=== PATIENT | female | born 1970 | race Caucasian/White ===

== ENCOUNTER 2016-08-31 17:23 | Emergency (ER) | payer BC ==
[2016-08-31 17:31] VITALS: BP 129/71
[2016-08-31] MEDS ORDERED: Albuterol/Ipratropium NEB.SOL* Albuterol 2.5 MG/Ipratropium 0.5 MG 3 ML INH ONE (17:42)
--- NOTE | 2016-08-31 17:42 | UC ---
Throat Pain/Nasal Gilbert HPI - HPI Summary HPI Summary: complaint of asthma attack hat has been worsening over the last 2 hours nasal congestion, cough sneezing feels like she is wheezing difficult to take a full deep breath denies chest pain, dizziness, nausea ,diaphoreisis has frequent bouts of allergy induced asthma in the past doesn't have an albuterol inhaler at this time taking zyrtec for allergies - History of Current Complaint Chief Complaint: UCRespiratory Stated Complaint: ALLERGY INDUCED ASTHMA,SOB Time Seen by Provider: 08/31/16 17:35 Hx Obtained From: Patient Hx Last Menstrual Period: 08/30/16 - Allergies/Home Medications Allergies/Adverse Reactions: Allergies Allergy/AdvReac Type Severity Reaction Status Date / Time Penicillin V Allergy Severe Difficulty Verified 08/31/16 17:31 [From Penicillin VK Breathing/hives Potassium] Azithromycin Allergy Unknown Hives Verified 08/31/16 17:31 Clindamycin Allergy Unknown Hives Verified 08/31/16 17:31 Sulfa Drugs Allergy Unknown GI Upset Verified 08/31/16 17:31 Amoxicillin Allergy Hives Verified 08/31/16 17:31 Cefaclor [From Ceclor] Allergy Hives Verified 08/31/16 17:31 Clarithromycin [From Biaxin] Allergy Hives Verified 08/31/16 17:31 Erythromycin Allergy Hives Verified 08/31/16 17:31 ENVIRONMENTAL/SEASONAL Allergy SNEEZE, Uncoded 08/31/16 17:31 HAYFEVER CONGESTION gentamycin Allergy Hives Uncoded 08/31/16 17:31 Home Medications: Home Medications Cetirizine* [ZyrTEC 10 MG TAB*] 10 mg PO DAILY 08/31/16 [History Confirmed 08/31] PMH/Surg Hx/FS Hx/Imm Hx Previously Healthy: Yes Respiratory History: Asthma - Surgical History Surgical History: Yes Surgery Procedure, Year, and Place: 1986 AND 1987 SINUS SURGERY, [facility]. 2007 [place] [facility] [place] [facility] [place]ATR[place] [facility] [place] [facility] [place] [facility] [place] [facility] [place]PLACEMENT-2013. 2016 RIGHT knee scope - Family History Known Family History: Negative: Cardiac Disease, Hypertension, Diabetes - Social History Occupation: Employed Full-time Lives: With Family Alcohol Use: Rare Substance Use Type: None Smoking Status (MU): Never Smoked Tobacco - Immunization History Most Recent Influenza Vaccination: 2014 Most Recent Tetanus Shot: 2009 Most Recent Pneumonia Vaccination: NO Review of Systems Constitutional: Negative Skin: Negative Eyes: Negative ENT: Nasal Discharge Respiratory: Cough Cardiovascular: Negative Gastrointestinal: Negative Genitourinary: Negative Motor: Negative Neurovascular: Negative Musculoskeletal: Negative Neurological: Headache Psychological: Negative All Other Systems Reviewed And Are Negative: Yes Physical Exam Triage Information Reviewed: Yes Appearance: No Pain Distress, Well-Nourished Vital Signs: Initial Vital Signs Temp 99.0 F 08/31/16 17:27 Pulse 107 08/31/16 17:27 Resp 18 08/31/16 17:27 BP 129/71 08/31/16 17:27 Pulse Ox 100 08/31/16 17:27 Vital Signs Reviewed: Yes Eyes: Positive: Conjunctiva Clear ENT: Positive: Pharynx normal, TMs normal Neck: Positive: No Lymphadenopathy Respiratory: Positive: No respiratory distress, No accessory muscle use, Wheezing - throughout Cardiovascular: Positive: RRR, No Murmur, Pulses Normal Abdomen Description: Positive: Nontender, Soft Bowel Sounds: Positive: Present Musculoskeletal: Positive: No Edema Neurological: Positive: Alert Psychological Exam: Normal Skin Exam: Normal Re-Evaluation - Re-Evaluation First Eval Re-Evaluation Time: 18:14 Change: Improved - less wheezing more air mevement throughout all lung appiah Throat Pain/Nasal Course/Dx - Course Course Of Treatment: exam completd. asthma exacerbation that improved with duoneb. will rx for prednisone and albuterol [place]. will followup with PCP - Differential Dx/Diagnosis Provider Diagnoses: asthma exacerbation Discharge - Discharge Plan Condition: Stable Disposition: HOME Prescriptions: Albuterol HFA INHALER* [Ventolin HFA Inhaler*] 2 puff INH Q4H PRN #1 mdi PRN Reason: Wheezing predniSONE TAB* [Deltasone TAB*] 40 mg PO DAILY #4 tab Patient Education Materials: Asthma (ED) Referrals: Nikolay Bhandari MD [Primary Care Provider] - Additional Instructions: take predisone as directed Use your albuterol inhaler every 4-6 hours when needed for wheezing, shortness of breath or uncontrolled coughing. Increase fluids and rest Take acetaminophen or ibuprofen for fever or pain Please review your discharge instructions. If your symptoms do not improve please call your primary care provider or return to urgent care.
[2016-08-31] MEDS ORDERED: Albuterol HFA INHALER* 8 gm MDI INH ONE (17:45)
[2016-08-31] MEDS ORDERED: predniSONE TAB* 20 MG PO ONE (18:15)
== END 2016-08-31 18:26 | disposition home or self-care (01) ==
LOC: UCCORT 17:23
DX: J45.901 Unspecified asthma with (acute) exacerbation (principal); Z88.0 Allergy status to penicillin; Z88.2 Allergy status to sulfonamides
CPT/HCPCS: 99213; A9270-GY; G0463; J7512

== ENCOUNTER 2017-03-21 11:03 | Emergency (ER) | payer BC ==
[2017-03-21 11:49] VITALS: BP 132/81
--- NOTE | 2017-03-21 12:18 | UC ---
Throat Pain/Nasal Gilbert HPI - HPI Summary HPI Summary: 2 weeks of bilateral sinus pain and pressure, thick mucus, sore throat, ear pain. denies fever or cough - History of Current Complaint Chief Complaint: UCRespiratory Stated Complaint: SINUS COMPLAINT Time Seen by Provider: 03/21/17 12:01 Hx Obtained From: Patient Hx Last Menstrual Period: now Onset/Duration: Sudden Onset, Lasting Weeks Severity: Moderate Associated Signs & Symptoms: Positive: Sinus Discomfort, Nasal Discharge - Allergies/Home Medications Allergies/Adverse Reactions: Allergies Allergy/AdvReac Type Severity Reaction Status Date / Time Penicillin V Allergy Severe Difficulty Verified 03/21/17 11:49 [From Penicillin VK Breathing/hives Potassium] Azithromycin Allergy Unknown Hives Verified 03/21/17 11:49 Clindamycin Allergy Unknown Hives Verified 03/21/17 11:49 Sulfa Drugs Allergy Unknown GI Upset Verified 03/21/17 11:49 Amoxicillin Allergy Hives Verified 03/21/17 11:49 Cefaclor [From Ceclor] Allergy Hives Verified 03/21/17 11:49 Clarithromycin [From Biaxin] Allergy Hives Verified 03/21/17 11:49 Erythromycin Allergy Hives Verified 03/21/17 11:49 ENVIRONMENTAL/SEASONAL Allergy SNEEZE, Uncoded 03/21/17 11:49 HAYFEVER CONGESTION gentamycin Allergy Hives Uncoded 03/21/17 11:49 PMH/Surg Hx/FS Hx/Imm Hx Previously Healthy: Yes - Surgical History Surgical History: Yes Surgery Procedure, Year, and Place: 1986 AND 1987 SINUS SURGERY, [facility]. 2007 RIGHT KNEE [place]GERY, [facility] [place]. [place] KNEE MENISCUS SURGERY, [facility] [place]. 2009 YOEL-EN-Y BYPASS BARIATRIC SURGERY, [facility] [place]. 2010 EXPLORATORY LAPAROSCOPY, [facility] [place] 2011 RIGHT KNEE SURGERY, [facility] [place]. 2012 ABDOMINAL [place]IA REPAIR, [facility] [place]. PARTIAL RIGHT KNEE REPLACEMENT-2013. 2016 RIGHT knee scope - Family History Known Family History: Negative: Cardiac Disease, Hypertension, Diabetes - Social History Alcohol Use: Rare Substance Use Type: None Smoking Status (MU): Never Smoked Tobacco - Immunization History Most Recent Influenza Vaccination: 2014 Most Recent Tetanus Shot: 2009 Most Recent Pneumonia Vaccination: NO Review of Systems Constitutional: Fatigue Skin: Negative Eyes: Negative ENT: Sore Throat, Ear Ache, Nasal Discharge, Sinus Congestion, Sinus Pain/ Tenderness Cardiovascular: Negative Gastrointestinal: Negative Genitourinary: Negative Motor: Negative Neurovascular: Negative Musculoskeletal: Negative Neurological: Headache Psychological: Negative Is Patient Immunocompromised?: No All Other Systems Reviewed And Are Negative: Yes Physical Exam Triage Information Reviewed: Yes Appearance: Well-Nourished, Ill-Appearing, Pain Distress Vital Signs: Initial Vital Signs Temp 99.7 F 03/21/17 11:45 Pulse 81 03/21/17 11:45 Resp 12 03/21/17 11:45 BP 132/81 03/21/17 11:45 Vital Signs Reviewed: Yes Eye Exam: Normal ENT: Positive: Pharyngeal erythema, Nasal congestion, Nasal drainage, TM bulging , TM dull Dental Exam: Normal Neck exam: Normal Neck: Positive: Supple, Nontender, No Lymphadenopathy Respiratory Exam: Normal Respiratory: Positive: Chest non-tender, Lungs clear, Normal breath sounds Cardiovascular Exam: Normal Cardiovascular: Positive: RRR, No Murmur, Pulses Normal Abdominal Exam: Normal Abdomen Description: Positive: Nontender, No Organomegaly, Soft Bowel Sounds: Positive: Present Musculoskeletal Exam: Normal Neurological Exam: Normal Psychological Exam: Normal Skin Exam: Normal Throat Pain/Nasal Course/Dx - Course Course Of Treatment: hx obtained, exam performed ,meds reviewed, treated for sinusitis - Differential Dx/Diagnosis Differential Diagnosis/HQI/PQRI: Otitis Media, Pharyngitis, Sinusitis, URI Provider Diagnoses: sinusitis Discharge - Discharge Plan Condition: Stable Disposition: HOME Prescriptions: DOXYcycline CAP(*) [DOXYcycline 100MG CAP(*)] 100 mg PO BID #14 cap predniSONE TAB* [Deltasone TAB*] 40 mg PO DAILY #14 tab Patient Education Materials: Rhinosinusitis (ED), Warm Compress or Soak (ED) Referrals: No Primary Care Phys,NOPCP [Primary Care Provider] - Additional Instructions: 1. take the medication as prescribed. 2. Increase fluid intake to keep secretions loose, 3. Use a humidifier, and warm compresses to neck and sinuses.
== END 2017-03-21 12:18 | disposition home or self-care (01) ==
LOC: UCCORT 11:03
DX: J32.9 Chronic sinusitis, unspecified (principal); J02.9 Acute pharyngitis, unspecified; H92.09 Otalgia, unspecified ear; Z88.0 Allergy status to penicillin; Z88.1 Allergy status to other antibiotic agents; Z88.2 Allergy status to sulfonamides
CPT/HCPCS: 99212; G0463

== ENCOUNTER 2017-03-23 11:48 | Emergency (ER) | payer BC ==
[2017-03-23 13:23] VITALS: BP 131/78
--- NOTE | 2017-03-23 14:50 | UC ---
Throat Pain/Nasal Gilbert HPI - HPI Summary HPI Summary: 47 y/o female presents to the urgent care c/o sinus congestion, pain and pressure with green nasal discharge since . Pt reports she was seen here at the clinic on on 03/21/17 and Rx on Doxy and Prednisone for sinus infection. She has Hx of recurrent sinus infection and is allergic to multiple ABxs. Her symptoms are worsening with sore throat, B/L ear pain and URBAN. Pt denies fever, dizziness, decrease hearing, SOB, chest pain, N/V/D. Her ENT is Dr Jerez and she requests Levofloxacin. - History of Current Complaint Chief Complaint: UCRespiratory Stated Complaint: RECHECK SINUS, GILBERT., EARS, ST Time Seen by Provider: 03/23/17 14:38 Hx Obtained From: Patient Hx Last Menstrual Period: 03/18/17 ?: No Onset/Duration: Gradual Onset, Lasting Weeks - 1 week, Worse Since - 2 days Severity: Severe Pain Intensity: 8 - sinus pain Pain Scale Used: 0-10 Numeric Cough: Nonproductive Associated Signs & Symptoms: Positive: Sinus Discomfort, Nasal Discharge Related History: Seasonal Allergies - Epiglottits Risk Factors Epiglottis Risk Factors: Negative - Allergies/Home Medications Allergies/Adverse Reactions: Allergies Allergy/AdvReac Type Severity Reaction Status Date / Time Penicillin V Allergy Severe Difficulty Verified 03/21/17 11:49 [From Penicillin VK Breathing/hives Potassium] Azithromycin Allergy Unknown Hives Verified 03/21/17 11:49 Clindamycin Allergy Unknown Hives Verified 03/21/17 11:49 Amoxicillin Allergy Hives Verified 03/21/17 11:49 Cefaclor [From Ceclor] Allergy Hives Verified 03/21/17 11:49 Clarithromycin [From Biaxin] Allergy Hives Verified 03/21/17 11:49 Erythromycin Allergy Hives Verified 03/21/17 11:49 Sulfa Drugs AdvReac Unknown GI Upset Verified 03/23/17 13:23 ENVIRONMENTAL/SEASONAL Allergy SNEEZE, Uncoded 03/21/17 11:49 HAYFEVER CONGESTION gentamycin Allergy Hives Uncoded 03/21/17 11:49 PMH/Surg Hx/FS Hx/Imm Hx Previously Healthy: Yes Other Neurological History: Neuropathy - Surgical History Surgical History: Yes Surgery Procedure, Year, and Place: 1986 AND 1987 SINUS SURGERY, [facility]. [place] [facility] [place] [facility] [place]OEL-[place] BAR[place]ATRIC [place] [facility] [place] [facility] [place] [facility] [place]. [place] [facility] [place]IAL [place]EE REPLACEMENT-2013. 2016 RIGHT knee scope - Family History Known Family History: Positive: Cardiac Disease, Hypertension Negative: Diabetes Family History: Breast cancer - Social History Occupation: Employed Full-time Lives: With Family Alcohol Use: Rare Substance Use Type: None Smoking Status (MU): Never Smoked Tobacco - Immunization History Most Recent Influenza Vaccination: 2014 Most Recent Tetanus Shot: 2009 Most Recent Pneumonia Vaccination: NO Review of Systems Constitutional: Negative Skin: Negative Eyes: Negative ENT: Sore Throat, Ear Ache, Nasal Discharge, Sinus Congestion, Sinus Pain/ Tenderness Respiratory: Cough - dry Cardiovascular: Negative Gastrointestinal: Negative Genitourinary: Negative Motor: Negative Neurovascular: Negative Musculoskeletal: Negative Neurological: Headache Psychological: Negative Is Patient Immunocompromised?: No All Other Systems Reviewed And Are Negative: Yes Physical Exam Triage Information Reviewed: Yes Vital Signs: Initial Vital Signs Temp 98.4 F 03/23/17 13:15 Pulse 98 03/23/17 13:15 Resp 16 03/23/17 13:15 BP 131/78 03/23/17 13:15 Pulse Ox 99 03/23/17 13:15 - Additional Comments Vitals: reviewed General: Well developed, well-nourished female patient with NAD. Head and face: Normocephalic and atraumatic, Positive tenderness over the frontal and maxillary sinuses.. Eyes: PERRLA, EOMI x 2. Normal conjunctiva. No eye discharge. ENT: Ears and TM with normal limits. Nose: with yellowish discharge and erythematous mucosa. Pharynx with erythema , no exudate. Neck: Supple, no JVD, no carotid bruits and no lymphadenopathy. Lungs: clear, no rales, no rhonchi, no wheezes. CVS: RRR, S1 and S2 present no murmurs or gallops appreciated. Abdomen: soft nontender with positive bowel sounds. Extremities: no edema noted. Neuro: WNL. Skin: warm and dry Throat Pain/Nasal Course/Dx - Course Course Of Treatment: 47 y/o female presents to the urgent care c/o sinus congestion, pain and pressure with green nasal discharge since . Pt reports she was seen here at the clinic on on 03/21/17 and Rx on Doxy and Prednisone for sinus infection. She has Hx of recurrent sinus infection and is allergic to multiple ABxs. Her symptoms are worsening with sore throat, B/L ear pain and URBAN. Pt denies fever, dizziness, decrease hearing, SOB, chest pain, N/V/ D. Her ENT is Dr Jeerz and she requests Levofloxacin. Hx obtained. Pt with sinusitis on examination and symptoms getting worse Despite taking Doxycycline. Pt Rx Levofloxacin PO and flonase nasal spray and Loratadine PO and f/u with Dr Jreez or Dr Escobar for further management.Pt understood and agreed with plan of care. - Differential Dx/Diagnosis Differential Diagnosis/HQI/PQRI: Influenza, Laryngitis, Pharyngitis, Sinusitis, Tonsillitis, URI Provider Diagnoses: 1- Acute bacterial sinusitis Discharge - Discharge Plan Condition: Stable Disposition: HOME Prescriptions: Fluticasone NASAL SPRAY 50MCG* [Flonase NASAL SPRAY 50MCG*] 2 spray BOTH NARES DAILY #1 btl Levofloxacin TAB* [Levaquin 500 Tab*] 500 mg PO DAILY #7 tab Loratadine & Pseudoephedrine [Loratadine-D 12Hr] 1 tab PO BID #20 tab Patient Education Materials: Sinusitis (ED) Forms: *Work Release Referrals: Stephan Escobar MD [Medical Doctor] - If Needed Nikolay Bhandari MD [Primary Care Provider] - 2 Days Additional Instructions: 1- Please increase fluid intake and rest. take full course of antibiotic to avoid resistance. STOP TAKING DOXYCYCLINE PO and NORTRIPTYLINE PO 2-Use Flonase as directed to help drain fluid. Also buy saline drops to clear sinuses. Increase fluid intake, rest eat well. 3-Take Loratadine PO to alleviates sinus congestion. 4-Return to the clinic or PCP of ENT DR Escobar if symptoms do not improve for further management and treatment
== END 2017-03-23 15:09 | disposition home or self-care (01) ==
LOC: UCCORT 11:48
DX: J01.90 Acute sinusitis, unspecified (principal); G62.9 Polyneuropathy, unspecified; Z98.84 Bariatric surgery status; Z96.651 Presence of right artificial knee joint; Z88.1 Allergy status to other antibiotic agents; Z88.0 Allergy status to penicillin; Z88.2 Allergy status to sulfonamides
CPT/HCPCS: 99212; G0463